=== PATIENT | male | born 1945 | race Caucasian/White ===

== ENCOUNTER → 2021-09-07 | Outpatient (CLI) | payer MEDICARE ==
[~2021-09-07] MED LIST: SOTROVIMAB 500 MG in IV DEXTROSE 5% 50 ML IV ONE
[2021-09-07 12:55] VITALS: BP 133/68
[2021-09-07 13:21] VITALS: BP 123/75
[2021-09-07 13:40] VITALS: BP 146/67
[2021-09-07 13:56] VITALS: BP 121/65
== END | disposition home or self-care (01) ==
LOC: OPSVCOP 10:30
PROVIDERS: ATTEND Internal Medicine Pulmonary Disease
DX: U07.1 COVID-19 (principal)
CPT/HCPCS: J7060; M0247; Q0247; 96365